=== PATIENT | male | born 1990 | race Two or more races ===

== ENCOUNTER 2017-09-30 06:29 | Emergency (ER) | payer SELFPAY ==
[2017-09-30 06:56] VITALS: BMI 28.8
[2017-09-30] MEDS ORDERED: ONDANSETRON 4 MG/2 ML VIAL IVPB ONE (07:32)
[2017-09-30] MEDS ORDERED: KETOROLAC TROMETHAMINE 30 MG/1 ML VIAL IVPUSH ONE (07:32)
[2017-09-30] MEDS ORDERED: LACTATED RINGERS SOLUTION 1000 ML INFUS.BAG IV ONE (07:33)
--- NOTE | 2017-09-30 07:34 | PDOC ---
History of Present Illness - General History Source: Patient Exam Limitations: No Limitations - History of Present Illness Initial Comments: 09/30/17 07:39 The patient is a 26 year old male with past medical history of gallstones who presents to the ED with RUQ pain since 10 pm last night. Patient reports constant dull pain that waxes and wanes intermittently. He reports associated vomiting that is nonbloody and nonbilious. The patient associates his pain to the pain he feels when he has gallstones which is typically a few times/ month. He denies taking anything for his pain today. The patient denies any fever, chills, diarrhea, cough, SOB, CP, or urinary symptoms. <Sepideh Perez - Last Filed: 09/30/17 09:54> - General History Source: Patient Exam Limitations: No Limitations <Drew Fung - Last Filed: 09/30/17 10:30> - General Chief Complaint: Pain Stated Complaint: STOMACH PAIN Time Seen by Provider: 09/30/17 07:30 Past History <Sepideh Perez - Last Filed: 09/30/17 09:54> - Past Medical History COPD: No - Suicide/Smoking/Psychosocial Hx Smoking History: Never smoked Have you smoked in the past 12 months: No Information on smoking cessation initiated: No Hx Alcohol Use: Yes (Occasional) Drug/Substance Use Hx: No Substance Use Type: None <Drew Fung - Last Filed: 09/30/17 10:30> - Past Medical History Allergies/Adverse Reactions: Allergies Allergy/AdvReac Type Severity Reaction Status Date / Time No Known Allergies Allergy Verified 09/30/17 06:53 Home Medications: Ambulatory Orders Ondansetron HCl [Zofran] 4 mg PO TID PRN #12 tablet 08/15/15 Ondansetron HCl [Zofran] 4 mg PO TID PRN #12 tablet 06/07/17 Ibuprofen 600 mg PO TID PRN #14 tablet 09/30/17 Ondansetron [Zofran -] 4 mg PO TID PRN #14 tablet 09/30/17 Oxycodone HCl/Acetaminophen [Percocet 5-325 mg Tablet -] 1 combo PO Q6H PRN #14 tablet MDD 4 09/30/17 Review of Systems - Review of Systems Able to Perform ROS?: Yes Comments:: 09/30/17 07:39 CONSTITUTIONAL: No reported: Fever, Chills, Diaphoresis, Generalized Weakness, Malaise, Loss of Appetite HEENT: No reported: Rhinorrhea, Nasal Congestion, Throat Pain, Throat Swelling, Difficulty Swallowing, Mouth Swelling, Ear Pain, Eye Pain, Visual Changes CARDIOVASCULAR: No reported: Chest Pain, Syncope, Palpitations, Irregular Heart Rate, Lightheadedness, Peripheral Edema RESPIRATORY: No reported: Cough, Shortness of Breath, SOB with Exertion, Orthopnea, Wheezing , Stridor, Hemoptysis GASTROINTESTINAL: Present: RUQ pain, nausea, vomiting No reported: Abdominal Distension, Diarrhea, Constipation, Melena, Hematochezia GENITOURINARY: No reported: Dysuria, Frequency, Urgency, Hesitancy, Flank Pain, Genital Pain MUSCULOSKELETAL: No reported: Myalgia, Arthralgia, Joint Swelling, Back pain, Neck Pain SKIN: No reported: Rash, Itching, Pallor HEMEATOLOGIC/IMMUNOLOGIC: No reported: Easy Bleeding, Easy Bruising, Lymphadenopathy, Frequent infections ENDOCRINE: No reported: Unexplained Weight Gain, Unexplained Weight Loss, Heat Intolerance , Cold Intolerance NEUROLOGIC: No reported: Headache, Focal Weakness, Paresthesias, Vertigo, Lightheadedness, Unsteady Gait, Seizure, Mental Status Changes, Incontinence PSYCHIATRIC: No reported: Anxiety, Depression All Other Systems: Reviewed and Negative <Sepideh Perez - Last Filed: 09/30/17 09:54> *Physical Exam - Vital Signs Last Vital Signs Temp Pulse Resp BP Pulse Ox 98.1 F 86 22 144/76 98 09/30/17 06:51 09/30/17 06:51 09/30/17 06:51 09/30/17 06:51 09/30/17 06:51 - Physical Exam Comments: 09/30/17 07:40 GENERAL: The patient is awake, alert, and fully oriented, Nontoxic. Uncomfortable appearing. HEAD: Normocephalic, atraumatic. EYES: extraocular movements intact, sclera anicteric, conjunctiva clear. ENT: Normal voice, Moist mucous membranes. NECK: Normal range of motion, supple LUNGS: Breath sounds equal, clear to auscultation bilaterally. No wheezes, no rhonchi, no rales. HEART: Regular rate and rhythm, without murmur, rub or gallop. ABDOMEN: Soft, mild RUQ pain on palpation, normoactive bowel sounds. No guarding , no rebound.No CVA tenderness EXTREMITIES: Normal range of motion, no edema. No clubbing or cyanosis. No cords , erythema, or tenderness. NEUROLOGICAL: No facial assymetry, Normal speech, PSYCH: Normal mood, normal affect. SKIN: Warm, Dry, normal turgor, <Sepideh Perez - Last Filed: 09/30/17 09:54> - Vital Signs Last Vital Signs Temp Pulse Resp BP Pulse Ox 98.1 F 86 22 144/76 98 09/30/17 06:51 09/30/17 06:51 09/30/17 06:51 09/30/17 06:51 09/30/17 06:51 <Drew Fung - Last Filed: 09/30/17 10:30> ED Treatment Course - LABORATORY CBC & Chemistry Diagram: 09/30/17 07:57 09/30/17 07:57 - RADIOLOGY Radiograph Interpretation: 09/30/17 09:54 Gallbladder ultrasound as reviewed by Dr. Phillips reports cholelithiasis. No evidence of acute cholecystitis <Sepideh Perez - Last Filed: 09/30/17 09:54> - LABORATORY CBC & Chemistry Diagram: 09/30/17 07:57 09/30/17 07:57 <Drew Fung - Last Filed: 09/30/17 10:30> Medical Decision Making - Medical Decision Making 09/30/17 07:33 26y Mhx gall stones presenting with waxing waning RUQ pain since last night on exam pt uncomfortable RUQ tenderness suspect gall stones 09/30/17 10:21 pts labs reviewed noted for leukocytosis to 18 with mil dleft shift lfts/cmp wnl pts US shows cohlelithiasis w/o inflammation or signs of obstruction pt feeling improved no pain currently I suspec the pts leukocytosis is secondary to pain rather than an infectious process his repeat abd exam is soft nontender will refer pt to a surgeon as outpatient due to recurrent sypmtoms for elective cholecystectomy diet instructions return precautions were discussed I discussed the physical exam findings, ancillary test results and final diagnoses with the patient. I answered all of the patient's questions. The patient was satisfied with the care received and felt comfortable with the discharge plan and treatment plan. The patient will call their primary care physician within 24 hours to arrange follow-up and will return to the Emergency Department with any new, persistent or worsening symptoms. <Drew Fung - Last Filed: 09/30/17 10:30> *DC/Admit/Observation/Transfer - Attestations Scribe Attestion: 09/30/17 07:41 Documentation prepared by Sepideh Perez, acting as medical practice assistant for Drew Fung MD. <Sepideh Perez - Last Filed: 09/30/17 09:54> - Discharge Dispostion Admit: No <Drew Fung - Last Filed: 09/30/17 10:30> Diagnosis at time of Disposition: Cholelithiasis Qualifiers: Cholelithiasis location: gallbladder Cholecystitis presence: without cholecystitis Biliary obstruction: without biliary obstruction Qualified Code(s) : K80.20 - Calculus of gallbladder without cholecystitis without obstruction - Discharge Dispostion Disposition: HOME Condition at time of disposition: Improved - Referrals Referrals: Khris Michael MD [Staff Physician] - - Patient Instructions Printed Discharge Instructions: DI for Gallstones Additional Instructions: Return to the emergency department immediately with ANY new, persistent or worsening symptoms including worsening abdominal pain, fevers, inability to tolerate oral intake, chest pain, shortness of breath or any other concerns. Stay well hydrated. Stay away from fatty foods. Take the ibuprofen as necessary for your pain. If he has breakthrough pain take Percocet. Percocet may make you sleepy so do not drive if taking percocet. You MUST call and follow up with a surgeon for further evaluation. Your emergency department visit is not complete without a followup with your doctor for reevaluation. Please make sure your doctor reviews the results of your emergency evaluation. Print Language: TURKMEN - Post Discharge Activity
[2017-09-30] MEDS ORDERED: KETOROLAC TROMETHAMINE 30 MG/1 ML VIAL ONE (07:51)
[2017-09-30] MEDS ORDERED: ONDANSETRON 4 MG/2 ML VIAL ONE (07:51)
[2017-09-30 08:13] LABS: BASO % 0.3 % (0-2.0); EOS % 0.2 % (0-4.5); HEMATOCRIT 47.6 % (35.4-49); HEMOGLOBIN 15.3 GM/dL (11.7-16.9); LYMPH % 5.4 % (8-40); MCH 28.6 pg (25.7-33.7); MCHC 32.3 g/dl (32.0-35.9); MEAN CELL VOLUME 88.6 fl (80-96); MEAN PLT VOLUME 10.8 fl (7.5-11.1); MONO % 4.2 % (3.8-10.2); NEUT % 89.9 % (42.8-82.8); PLATELET COUNT 226 K/MM3 (134-434); RBC 5.37 M/mm3 (4.00-5.60); RDW 13.6 % (11.9-15.9); WHITE BLOOD COUNT 18.7 K/mm3 (4.0-10.0)
[2017-09-30 08:32] LABS: ALBUMIN 4.4 g/dl (3.4-5.0); ALK PHOS 118 U/L (45-117); ANION GAP 6 (8-16); BILIRUBIN,DIRECT 0.2 mg/dL (0.0-0.2); BILIRUBIN,TOTAL 0.6 mg/dL (0.2-1.0); BLOOD UREA NITROGEN 14 mg/dL (7-18); CALCIUM 8.8 mg/dL (8.5-10.1); CHLORIDE 105 mmol/L (98-107); CO2 28 mmol/L (21-32); CREATININE 0.8 mg/dL (0.7-1.3); GLUCOSE,RANDOM 114 mg/dL (74-106); LIPASE 104 U/L (73-393); POTASSIUM 3.8 mmol/L (3.5-5.1); SGOT/AST 16 U/L (15-37); SGPT/ALT 35 U/L (12-78); SODIUM 139 mmol/L (136-145); TOT PROT 7.9 g/dl (6.4-8.2)
[2017-09-30 11:35] VITALS: BP 135/78; PULSE 79; TEMP 98.5
== END 2017-09-30 11:35 | disposition home or self-care (01) ==
LOC: JER 06:29
PROC: 3E0333Z Introduction of Anti-inflammatory into Peripheral Vein, Percutaneous Approach (ICD-10-PCS; principal; 2017-09-30)
PROC: 3E033GC Introduction of Other Therapeutic Substance into Peripheral Vein, Percutaneous Approach (ICD-10-PCS; 2017-09-30)
DX: K80.20 Calculus of gallbladder without cholecystitis without obstruction (principal)
CPT/HCPCS: 36415; 76705-TC; 80053; 82248; 83690; 85025; 99284-25